=== PATIENT | male | born 1990 | race African-American/Black ===

== ENCOUNTER 2023-09-27 16:00 | Emergency (ER) | payer MEDICAID ==
[~2023-09-27] VITALS: Ht 175.3 cm; Wt 75.0 kg
[2023-09-27 16:02] VITALS: O2SAT 99
[2023-09-27] MEDS: HYDROCODONE/ACETAMINOPHEN 5/325MG TABLET PO ONE (16:30)
[2023-09-27 16:51] LABS: BASOPHILS % 0.2 % (0.0-2.0); EOSINOPHILS % 0.2 % (0.0-5.0); HEMOGLOBIN. 12.6 g/dL (14.0-18.0); LYMPHOCYTES % 24.5 % (20.0-50.0); MEAN CORPUSCULAR HEMOGLOBIN 28.8 pg (28.0-32.0); MEAN CORPUSCULAR HGB CONC 33.9 g/dL (31.0-37.0); MEAN CORPUSCULAR VOLUME 84.7 fL (80.0-94.0); MEAN PLATELET VOLUME 8.1 fl (7.4-10.4); MONOCYTES % 7.1 % (2.0-8.0); PLATELET 241 x1000/uL (130-400); RED BLOOD CELL COUNT 4.37 mill/uL (4.7-6.1); RED CELL DISTRIBUTION WIDTH 13.1 % (11.6-14.6); WHITE BLOOD COUNT 8.6 x1000/uL (4.5-11.0)
[2023-09-27 16:58] LABS: CHLORIDE 105 mEq/L (98-107); POTASSIUM 2.9 mEq/L (3.5-5.1); SODIUM 137 mEq/L (136-145)
[2023-09-27 16:59] LABS: CARBON DIOXIDE 28 mEq/L (21-32)
[2023-09-27 17:00] LABS: CALCIUM 8.7 mg/dL (8.7-10.4)
[2023-09-27 17:04] LABS: CREATININE 1.4 mg/dL (0.6-1.3); GLUCOSE 101 mg/dL (70-105); UREA NITROGEN BLOOD 11 mg/dL (9-23)
[2023-09-27] MEDS: POTASSIUM CHLORIDE 20MEQ/PACKET PO ONE (18:35)
[2023-09-27 18:51] VITALS: BP 131/81; PULSE 76; RESP 14; TEMP 97.8
== END 2023-09-27 18:56 | disposition home or self-care (01) ==
LOC: ER 16:00
DX: S09.90XA Unspecified injury of head, initial encounter (principal); R55 Syncope and collapse; E87.6 Hypokalemia; N28.9 Disorder of kidney and ureter, unspecified; W18.39XA Other fall on same level, initial encounter; Y93.89 Activity, other specified; Y92.89 Other specified places as the place of occurrence of the external cause; Y99.8 Other external cause status
CPT/HCPCS: 80048; 85025; 36415; 70450; 93005; 99284; Z7610 ×2